=== PATIENT | male | born 1990 | race Hispanic/Latino ===

== ENCOUNTER → 2018-07-27 | Day surgery (SDC) | payer SELFPAY ==
[~2018-07-27] MED LIST: BUPIVACA 0.25%/EPI 0.0005% MDV 50 ML VIAL ONE; FENTANYL CITR 100 MCG/2 ML ONE; GLYCOPYRROLATE 0.2 MG/ML SYR ONE; KETOROLAC 30 MG/ML INJ ONE; LIDOCAINE 2% MPF 5 ML VIAL ONE; Levofloxacin500mg IV 500 MG/100 ML BAG IV ONE; METRONIDAZOLE 500mg IVPB 500 MG/100 ML BAG IV ONE; MIDAZOLAM HCL 2 MG/2 ML INJ ONE; NA CHLORIDE 0.9% 1,000 ML ONE; NEOSTIGMINE 1 MG/ML -10 ML VIAL ONE; ONDANSETRON 4 MG/2 ML VIAL ONE; PIPER/TAZO/NS 3.375gm 3.375 GM/100 ML BAG ONE; PROPOFOL 200 MG/20 ML VIAL IV ONE; ROCURONIUM 50 MG/5 ML VIAL IV ONE; Ringers Lactate 1,000 ML IV ONE
[2018-07-27 17:11] LABS: Absolute Lymphocytes (CBC) 1.9 K/uL (0.7-4.9); Absolute Monocytes 1.5 K/uL (0.1-1.3); Absolute Neutrophil 16.3 K/uL (1.8-8.0); Basophils % 0.3 % (0-1.3); Eosinophils % 0.5 % (0-4.4); Hematocrit 50.3 % (39.6-49.0); Lymphocytes % 9.7 % (15.3-44.8); MPV 9.7 fL (7.6-11.3); Monocytes % 7.4 % (3.3-12.3); RBC Red Blood Cell Count 5.45 M/uL (4.33-5.43)
[2018-07-27 17:28] LABS: Potassium 3.8 mmol/L (3.5-5.1)
--- NOTE | 2018-07-27 19:09 | RAD REPORT ---
EXAM DESCRIPTION: CTAbdomen Pelvis W Contrast - 07/27/2018 6:59 pm CLINICAL HISTORY: Abdominal pain. ABD PAIN COMPARISON: No comparisons TECHNIQUE: Biphasic CT imaging of the abdomen and pelvis was performed with 100 ml non-ionic IV cont rast. All CT scans are performed using dose optimization technique as appropriate and may include automated exposure control or mA/KV adjustment according to patient size. FINDINGS: The lung bases are clear. The liver, spleen, pancreas, adrenal glands and kidneys are within normal limits. No bowel obstruction, free air, free fluid or abscess. The appendix is dilated to 17 mm with moderat e surrounding inflammatory changes compatible with acute appendicitis. No evidence of significant ly mphadenopathy. No suspicious bony findings. IMPRESSION: Acute appendicitis.
--- NOTE | 2018-07-27 19:25 | ER ---
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 Transition of care: patient was not received from another setting of care. Onset of symptoms was July 27, 2018. Risk Assessment: Do you want to hurt yourself or someone else? Patient reports no desire to harm self or others. Initial Sepsis Screen: Does the patient meet any 2 criteria? No. Patient's initial sepsis screen is negative. Does the patient have a suspected source of infection? No. Patient's initial sepsis screen is negative. Care prior to arrival: None. 16:04 Method Of Arrival: Ambulatory 16:04 Acuity: PREMA 3 hj Triage Assessment: 16:06 General: Appears in no apparent distress. uncomfortable, Behavior is calm, cooperative, hj appropriate for age. Pain: Complains of pain in abdomen. GI: Reports lower abdominal pain. Historical: - Allergies: 16:06 No Known Allergies; hj - Home Meds: 16:06 None [Active]; hj - PMHx: 16:06 Hypertension; Thyroid problem; hj - PSHx: 16:06 None; hj - Immunization history:: Adult Immunizations up to date. - Social history:: Smoking status: Patient uses tobacco products, Patient uses alcohol. - Ebola Screening: : Patient negative for fever greater than or equal to 101.5 degrees Fahrenheit, and additional compatible Ebola Virus Disease symptoms Patient denies exposure to infectious person Patient denies travel to an Ebola-affected area in the 21 days before illness onset. Screenin:06 Abuse screen: Denies threats or abuse. Denies injuries from another. Nutritional hj screening: No deficits noted. Tuberculosis screening: No symptoms or risk factors identified. Fall Risk None identified. Assessment: 16:07 GI: Bowel sounds present X 4 quads. Abd is soft. hj 16:30 General: Appears in no apparent distress. comfortable, Behavior is calm, cooperative, bp appropriate for age. Pain: Complains of pain in abdomen. Neuro: Level of Consciousness is awake, alert, obeys commands, Oriented to person, place, time, situation, Appropriate for age. Cardiovascular: No deficits noted. Respiratory: Airway is patent Respiratory effort is even, unlabored, Respiratory pattern is regular, symmetrical. GI: Abdomen is non-distended, Bowel sounds present X 4 quads. Abd is soft X 4 quads. : No signs and/or symptoms were reported regarding the genitourinary system. EENT: No deficits noted. Derm: No deficits noted. Musculoskeletal: Circulation, motion, and sensation intact. Range of motion: intact in all extremities. 17:00 Reassessment: PT DRINKING PO CONTRAST. bp 17:08 Reassessment: PT COMPLETED PO CONTRAST, CT NOTIFIED. bp 19:05 Reassessment: Patient appears in no apparent distress at this time. Patient and/or cc3 family updated on plan of care and expected duration. Pain level reassessed. Patient is alert, oriented x 3, equal unlabored respirations, skin warm/dry/pink. Received this male patient from morning shift RN Fausto as a case of abdominal pain. With IV cannula gauge 20 at the right ACV saline locked. Patient came back from CT scan department, awaiting result. 19:30 Reassessment: Patient's CT scan result is acute appendicitis, patient for direct OR cc3 admission. OR admission papers completed. 19:35 Reassessment: Handed over the patient to OR nurse Casandra who came for the patient. cc3 Patient left ER for admission vitally stable by stretcher escorted by OR nurse Casandra. Vital Signs: 16:07 BP 139 / 91; Pulse 96; Resp 18; Temp 97.5(TE); Pulse Ox 100% on R/A; Weight 90.72 kg; hj Height 5 ft. 8 in. (172.72 cm); Pain 7/10; 17:09 BP 138 / 92; Pulse 70; Resp 14; Pulse Ox 100% ; bp 19:20 BP 135 / 87; Pulse 75; Resp 17 S; Pulse Ox 100% on R/A; cc3 16:07 Body Mass Index 30.41 (90.72 kg, 172.72 cm) ED Course: 16:03 Patient arrived in ED. mr 16:04 None, None is Private Physician. mr 16:05 Triage completed. hj 16:05 Kim Sinclair [facility]C [facility] kb 16:05 Kwesi Mills MD is Attending Physician. kb 16:07 Arm band placed on right wrist. hj 16:07 Patient has correct armband on for positive identification. Placed in gown. Bed in low hj position. Call light in reach. Side rails up X 1. 16:33 Fausto Diop, DANNIE is Primary Nurse. bp 16:59 Oral contrast given. vm2 17:06 Inserted saline lock: 20 gauge in right antecubital area, using aseptic technique. bp Blood collected. 18:[address] via wheelchair. vm2 18:57 CT completed. Patient tolerated procedure well. Patient moved back from CT. vm2 19:01 CT Abd/Pelvis - W/Contrast In Process Unspecified. EDMS 19:23 Deondre Wolff MD is Hospitalizing Provider. kb 19:35 No provider procedures requiring assistance completed. Patient admitted, IV remains in cc3 place. Administered Medications: 19:20 Drug: NS 0.9% 1000 ml Route: IV; Rate: 1000 ml; Site: right antecubital; cc3 19:35 Follow up: Response: No adverse reaction; IV Status: Infusion continued upon admission cc3 19:25 Not Given (Physician Discretion): Zosyn 3.375 grams IVPB once over 60 mins; (mix in NS kb 100 mL) 19:30 Drug: Flagyl 500 mg Volume: 100 ml; Route: IVPB; Rate: 200 ml/hr; Infused Over: 30 cc3 mins; Site: right antecubital; 19:35 Follow up: Response: No adverse reaction; IV Status: Infusion continued upon admission cc3 19:30 Drug: LevaQUIN 500 mg Volume: 100 ml; Route: IVPB; Infused Over: 60 mins; Site: right cc3 antecubital; 19:35 Follow up: Response: No adverse reaction; IV Status: Infusion continued upon admission cc3 Outcome: 19:24 Decision to Hospitalize by Provider. kb 19:35 Admitted to OR accompanied by nurse, via stretcher, with chart, Report called to RN cc3 Casandra came for the patient 19:35 Condition: stable 19:35 Instructed on the need for admit, Demonstrated understanding of instructions. 19:39 Patient left the ED. 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 8 in.; BMI: 30.4; Pain 7/10; hj hj 16:09 16:07 Pulse 96bpm; Resp 18bpm; Pulse Ox 100% RA; Temp 97.5F Temporal; 90.72 kg; Height hj 5 ft. 8 in.; BMI: 30.4; Pain 7/10; hj 07/28 01:17 07/27 19:05 Reassessment: Patient appears in no apparent distress at this time. Patient cc3 and/or family updated on plan of care and expected duration. Pain level reassessed. Patient is alert, oriented x 3, equal unlabored respirations, skin warm/dry/pink. Received this male patient from morning shift DANNIE Lambert as a case of abdominal pain. With IV cannula gauge 20 at the left ACV saline locked. Patient came back from CT scan department, awaiting result. cc3 07/28 01:19 07/27 19:30 Reassessment: Patient's CT scan result is acute appendicitis, patient for cc3 direct OR admission. cc3
--- NOTE | 2018-07-27 19:25 | EDPHYS ---
Physician Documentation [facility] Name: Francisco Perez Age: 27 yrs Sex: Male : 1990 Arrival Date: 07/27/2018 Time: 16:03 Bed 17 Private MD: None, None ED Physician Kwesi Mills HPI: 07/27 19:22 This 27 yrs old Male presents to ER via Ambulatory with complaints of kb Abdominal Pain. 19:22 The patient presents with abdominal pain right lower quadrant. Onset: The kb symptoms/episode began/occurred this morning. The symptoms do not radiate. Associated signs and symptoms: Pertinent positives: fever, Pertinent negatives: nausea, vomiting, and diarrhea. The symptoms are described as constant. Modifying factors: The symptoms are alleviated by nothing, the symptoms are aggravated by nothing. Severity of pain: At its worst the pain was moderate in the emergency department the pain is unchanged. The patient has not experienced similar symptoms in the past. The patient has not recently seen a physician. Historical: - Allergies: 16:06 No Known Allergies; hj - Home Meds: 16:06 None [Active]; hj - PMHx: 16:06 Hypertension; Thyroid problem; hj - PSHx: 16:06 None; hj - Immunization history:: Adult Immunizations up to date. - Social history:: Smoking status: Patient uses tobacco products, Patient uses alcohol. - Ebola Screening: : Patient negative for fever greater than or equal to 101.5 degrees Fahrenheit, and additional compatible Ebola Virus Disease symptoms Patient denies exposure to infectious person Patient denies travel to an Ebola-affected area in the 21 days before illness onset. ROS: 19:18 Cardiovascular: Negative for chest pain, palpitations, and edema, Respiratory: Negative kb for shortness of breath, cough, wheezing, and pleuritic chest pain, Back: Negative for injury and pain, MS/Extremity: Negative for injury and deformity, Skin: Negative for injury, rash, and discoloration, Neuro: Negative for headache, weakness, numbness, tingling, and seizure. 19:18 Constitutional: Positive for fever, Negative for body aches, chills, fatigue, malaise, poor PO intake, weight loss. 19:18 Abdomen/GI: Positive for abdominal pain, Negative for nausea, vomiting, and diarrhea. Exam: 19:21 Constitutional: This is a well developed, well nourished patient who is awake, alert, kb and in no acute distress. Head/Face: Normocephalic, atraumatic. Neck: Trachea midline, no thyromegaly or masses palpated, and no cervical lymphadenopathy. Supple, full range of motion without nuchal rigidity, or vertebral point tenderness. No Meningismus. Chest/axilla: Normal chest wall appearance and motion. Nontender with no deformity. No lesions are appreciated. Cardiovascular: Regular rate and rhythm with a normal S1 and S2. No gallops, murmurs, or rubs. Normal PMI, no JVD. No pulse deficits. Respiratory: Lungs have equal breath sounds bilaterally, clear to auscultation and percussion. No rales, rhonchi or wheezes noted. No increased work of breathing, no retractions or nasal flaring. Skin: Warm, dry with normal turgor. Normal color with no rashes, no lesions, and no evidence of cellulitis. MS/ Extremity: Pulses equal, no cyanosis. Neurovascular intact. Full, normal range of motion. Neuro: Awake and alert, GCS 15, oriented to person, place, time, and situation. Cranial nerves II-XII grossly intact. Motor strength 5/5 in all extremities. Sensory grossly intact. Cerebellar exam normal. Normal gait. 19:21 Abdomen/GI: Inspection: abdomen appears normal, Bowel sounds: normal, in all quadrants, Palpation: soft, in all quadrants, mild abdominal tenderness, in the right lower quadrant. Vital Signs: 16:07 BP 139 / 91; Pulse 96; Resp 18; Temp 97.5(TE); Pulse Ox 100% on R/A; Weight 90.72 kg; hj Height 5 ft. 8 in. (172.72 cm); Pain 7/10; 17:09 BP 138 / 92; Pulse 70; Resp 14; Pulse Ox 100% ; bp 19:20 BP 135 / 87; Pulse 75; Resp 17 S; Pulse Ox 100% on R/A; cc3 16:07 Body Mass Index 30.41 (90.72 kg, 172.72 cm) MDM: 16:34 Patient medically screened. kb 19:15 Data reviewed: vital signs, nurses notes. Data interpreted: Pulse oximetry: on room air kb is 100 %. Interpretation: normal. Counseling: I had a detailed discussion with the patient and/or guardian regarding: the historical points, exam findings, and any diagnostic results supporting the discharge/admit diagnosis, lab results, radiology results, the need for further work-up and treatment in the hospital. Physician consultation: Deondre Wolff MD was contacted at 19:16, regarding admission, to the operating room, patient's condition, and will see patient in ED, shortly. 07/27 16:49 Order name: Basic Metabolic Panel; Complete Time: 17:32 kb 07/27 16:49 Order name: CBC with Diff; Complete Time: 17:13 kb 07/27 16:49 Order name: CT Abd/Pelvis - W/Contrast; Complete Time: 19:12 kb 07/27 16:49 Order name: IV Saline Lock; Complete Time: 17:06 kb 07/27 16:49 Order name: Labs collected and sent; Complete Time: 17:06 kb Administered Medications: 19:20 Drug: NS 0.9% 1000 ml Route: IV; Rate: 1000 ml; Site: right antecubital; cc3 19:35 Follow up: Response: No adverse reaction; IV Status: Infusion continued upon admission cc3 19:25 Not Given (Physician Discretion): Zosyn 3.375 grams IVPB once over 60 mins; (mix in NS kb 100 mL) 19:30 Drug: Flagyl 500 mg Volume: 100 ml; Route: IVPB; Rate: 200 ml/hr; Infused Over: 30 cc3 mins; Site: right antecubital; 19:35 Follow up: Response: No adverse reaction; IV Status: Infusion continued upon admission cc3 19:30 Drug: LevaQUIN 500 mg Volume: 100 ml; Route: IVPB; Infused Over: 60 mins; Site: right cc3 antecubital; 19:35 Follow up: Response: No adverse reaction; IV Status: Infusion continued upon admission cc3 Disposition: 07/28 12:43 Co-signature as Attending Physician, Kwesi Mills MD I agree with the assessment and wa plan of care. Disposition: 07/27/18 19:24 Hospitalization ordered by Deondre Wolff for Observation. Preliminary diagnosis is Acute appendicitis. - Bed requested for Telemetry/MedSurg (observation). - Status is Observation. cc3 - Condition is Stable. - Problem is new. - Symptoms are unchanged. UTI on Admission? No Signatures: Dispatcher [employer] EDMS Kim Sinclair FNP-C PIPE FITTER SUPERVISOR MAINTENANCE-David Kay, RN RN Kwesi Mills MD MD wa Cordel, Charlene cc3 Corrections: (The following items were deleted from the chart) 07/27 19:39 19:24 Hospitalization Ordered by Deondre Wolff MD for Observation. Preliminary diagnosis cc3 is Acute appendicitis. Bed requested for Telemetry/MedSurg (observation). Status is Observation. Condition is Stable. Problem is new. Symptoms are unchanged. UTI on Admission? No. kb
--- NOTE | 2018-07-27 20:47 | P.OP ---
Preoperative diagnosis: Acute Appendicitis Postoperative diagnosis: Acute Appendicitis Primary procedure: Laparoscopic Appendectomy Anesthesia: GETA + Local Estimated blood loss: <5cc Specimen: Appendix Findings: Acute Inflammed Appendicitis - non-perforated Complications: None Transferred to: Recovery Room Condition: Good
--- NOTE | 2018-07-28 13:56 | RAD REPORT ---
EXAM DESCRIPTION: RAD - Chest Single View - 07/27/2018 9:41 pm CLINICAL HISTORY: 27 years Male, low 02 sat COMPARISON: None. FINDINGS: The heart and mediastinum are within normal limits. The lung moran are clear of acute infiltrates. The pulmonary vascularity is unremarkable. No active pleural disease is present. IMPRESSION: 1. No active infiltrates. Electronically signed by: Cory Melchor MD 07/27/2018 9:50 PM [employer] workstation: [id number] Due to temporary technical issues with the PACS/Fluency reporting system, reports are being signed by the in house radiologist as a courtesy to ensure prompt reporting. The interpreting radiologist is f ully responsible for the content of the report.
--- NOTE | 2018-07-28 17:38 | HP ---
Date of Admission: 07/27/2018 Brief History Of Present Illness: The patient is a 27-year-old male, who [facility] with approximately 1-day history of periumbilical, now right lower quadrant abdominal pain, got pr ogressively worse over the course of the day, significantly sharper, more tender, and as such he came to the emergency room with the with the above-stated complaint. Had some mild diarrhea. No vomitin g, but did have nausea. Subjective fever and chills. Never had similar episodes before in the past. No sick contacts. No recent travel. He works in the [employer]. Past Medical History: Significant for hypertension, hypothyroidism. Past Surgical History: Negative. Allergies: NO KNOWN DRUG ALLERGIES. Medications: None. Social History: He denies smoking, alcohol, or recreational drug use. He works in the [employer] as abo ve. Review of Systems: A 10-point review of systems, other than HPI, denies. Physical Examination: General: At the time of my examination, he is awake, alert, and oriented. Psychiatric: He is appropriate, conversive. HEENT: Normocephalic. Sclerae icteric. Mucous membranes are moist. Oropharynx clear. Neck: Supple. No JVD. Chest: Normal expansion and excursion. Cardiovascular: Regular rate and rhythm. Pulmonary: Clear to auscultation bilaterally. Abdomen: Soft with positive right lower quadrant focal peritonitis, positive tenderness to palpation . Positive rebound, positive guarding in the infraumbilical and right lower quadrant area, near McBu rney's point at the area of greatest tenderness. Extremities: No clubbing, cyanosis, or edema. Skin: Warm and dry. Laboratory Data: Reveals a white blood count of 19.8, hemoglobin 17.0, hematocrit of 50.3, platelet count is 211, neutrophils 82%. His sodium 137, potassium 3.8, chloride 103, carbon dioxide 30, BUN 1 0, creatinine 1.1, glucose is 93, calcium 9.1. He had a CT scan performed of the abdomen and pelvis officially read as, the appendix is dilated to 17 mm with moderate surrounding inflammatory changes c ompatible with acute appendicitis. No evidence of lymphadenopathy. This is consistent with acute ap pendicitis. Assessment And Plan: This is a 27-year-old male who presents with signs and symptoms of acute append icitis. 1.IV fluid hydration. 2.Antibiotic coverage, Levaquin and Flagyl. I have explained the risks, benefits, and alternatives of laparoscopic and possible open appendectomy including but not limited to bleeding, infection, damage to surrounding tissue, need for further ope ration or procedures. The patient agrees to proceed as indicated. CONCEPCIÓN/GILBERTO Voice ID: [id number]
--- NOTE | 2018-07-28 17:50 | OP ---
Date of Procedure: 07/27/2018 Surgeon: Deondre Wolff MD, Preoperative Diagnosis: Acute appendicitis. Postoperative Diagnosis: Acute appendicitis. Procedure Performed: Laparoscopic appendectomy. Anesthesia: General endotracheal plus local with 0.25% Marcaine with epinephrine. Estimated Blood Loss: Less than 5 cc. Specimen: Vermiform appendix. Findings: Acute inflamed appendix with significant dilatation, nonperforated. Complications: None. Disposition: Transferred to recovery room in good condition. Procedure In Detail: After informed consent was obtained, the patient was brought to the operating r oom, prepped and draped in the usual fashion. After adequate anesthesia was achieved. An infraumbil ical area was anesthetized with 0.25% Marcaine, sharply incised, and a 5-mm trocar was introduced int o the abdomen without evidence of complication. Insufflation was obtained to 15 mmHg at this time. The area was inspected. There was no injury to vital structures upon entering the abdomen. The elie tional trocar site was chosen in the suprapubic region and this was similarly incised and sharply exc ised, and a 5-mm trocar was introduced into the abdomen without evidence of complication. The umbili sahra trocar was then up-sized to a 12 mm under direct visualization without evidence of complication. Additional trocar site was chosen in the left lower quadrant this was similarly incised and sharply excised. A 5-mm trocars was introduced into the abdomen without evidence of complication. The patie nt was then positioned in head down, right side up position. Ratcheted grasper was used to grasp the patient's appendix, it was found to be quite inflamed, stuck to the lateral abdominal wall. This wa s freed up using blunt dissection as well as the LigaSure device. The mesoappendix was elevated as w ell along with the appendix found to be quite inflamed. Dissection continued down to create a mesoap pendiceal window at the confluence of the cecum with a [place] retractor. After the mesoappendiceal window was created, an Endo LEENA 35 blue load was fired across the base of the appendix with good liyah roximation of the tissues. The mesoappendix was then taken down using the LigaSure device with good approximation of tissues and good hemostasis. The appendix was then placed in an EndoCatch bag and r emoved through the umbilical trocar. Reinsufflation was obtained at this time. There area was copio usly irrigated multiple times until completely clear and suctioned out completely until completely dr y. The staple line was inspected and found to be in good anatomic position without any evidence of l eakage. The area was once again copiously irrigated and suctioned completely dry. The patient was p ositioned in neutral position. The remainder of the irrigation was then suctioned out. The umbilica l trocar was then removed. The umbilical trocar site was then closed using a Mason-Twyla suture passer and 0 Vicryl in interrupted fashion with good approximation of tissues. All remaining trocars were then inspected, and the abdomen was completely desufflated under direct visualization without e vidence of complication. After the abdomen was completely desufflated, all trocars were then removed . All skin incisions were copiously irrigated and closed with a 4-0 Monocryl in a running fashion. Dermabond was placed over the top. The patient tolerated the procedure without evidence of complicat ion and transferred back in good condition. All counts were correct at the end of the case. CONCEPCIÓN/GILBERTO Voice ID: [id number] Report ID: [id number]
--- OUTSIDE RECORDS SUMMARY | 2018-08-28 11:15 | XMS REPORT ---
:1990 Author Organization [employer] Care Team Providers Name Role Phone Deondre Wolff Provider Role Unavailable Allergies, Adverse Reactions, Alerts Substance Reaction Event Type N.K.D.A. Info Not Available Non Drug Allergy Problems Problem Type Condition Code Onset Dates Condition Status Assessment Acute appendicitis with localized K35.3 Active peritonitis Medications No Known Medications Results No Known Results Summary Purpose [employer] Submission
== END | disposition home or self-care (01) ==
LOC: EDSTATUS 11:13 → DS 16:00 → ER 16:00 → UNDOADMOB 19:45 → ERHOLD 19:45
PROVIDERS: ATTEND Surgery
PROC: 0DTJ4ZZ Resection of Appendix, Percutaneous Endoscopic Approach (ICD-10-PCS; principal; 2018-07-27 19:50)
DX: K35.80 Unspecified acute appendicitis (principal); I10 Essential (primary) hypertension; E03.9 Hypothyroidism, unspecified
CPT/HCPCS: 36415; 71045; 74177; 80048; 85025; 88304; 96374; 96375; 99285; J2250; J2405; J2543; J2704; J2710; J3010; J7030; Q9967